=== PATIENT | male | born 1995 | race Hispanic/Latino ===

== ENCOUNTER 2020-08-27 22:05 | Emergency (ER) | payer SELFPAY ==
[2020-08-27 22:22] VITALS: BP 126/78; PULSE 84; RESP 20; TEMP 36.6; O2SAT 100
--- NOTE | 2020-08-27 22:27 | ED.ANIMALBIT ---
HPI - Animal Bite General Chief Complaint: Animal Bite Stated Complaint: dog bite on ear Time Seen by Provider: 08/27/20 22:30 Source: patient and family Mode of arrival: ambulatory Limitations: no limitations History of Present Illness HPI narrative: Patient was evidently bitten by his pit bull on his right ear. Ear has a superficial laceration that is about 4cm long and only a partial thickness wound. Bleeding was minimal although it was widely gaped. MD complaint: animal bite Onset (ago): hour(s) (1) Animal: dog Description of animal: household pet Mechanism: bite Location: other (ear) Pain description: burning Context: unprovoked Associated symptoms: none Treatments prior to arrival: irrigation and other (scrub with wound care spray) Related Data Patient tetanus UTD: No Home Medications Medication Instructions Recorded Confirmed No Home Medications 08/27/20 08/27/20 Allergies Allergy/AdvReac Type Severity Reaction Status Date / Time No Known Allergies Allergy Verified 08/27/20 22:21 Review of Systems Constitutional: Constitutional: Reports no additional constitutional complaints Eyes: Eyes: Reports no additional eye complaints ENT: Reports system reviewed and no additional complaints, except as documented Cardiovascular: Cardiovascular: Reports no additional cardiovascular complaints Respiratory: Respiratory: Reports no additional respiratory complaints Gastrointestinal: Gastrointestinal: Reports no additional gastrointestinal complaints Genitourinary: Genitourinary: Reports no additional male genitourinary complaints Musculoskeletal: Musculoskeletal: Reports no additional musculoskeletal complaints Integumentary/Breasts: Skin/Breast: Reports system reviewed and no additional complaints, except as docu Neurologic: Reports system reviewed and no additional complaints, except as documented Psychiatric: Psychiatric: Reports no additional psychiatric complaints Endocrine: Endocrine: Reports no additional endocrine complaints Hematologic/Lymphatic: Hematologic/Lymphatic: Reports no additional hematologic/lymphatic complaints Allergic/Immunologic: Allergic/Immunologic: Reports no additional allergic/immunologic complaints [facility] Past Medical History Medical History No significant medical problems Surgical History Surgical History No significant past surgical history Family History Family History (Updated 08/28/20 @ 04:00 by Roman Campos MD) Mother Breast cancer in female Social History Social History (Updated 08/28/20 @ 04:00 by Roman Campos MD) Smoking status: Current some day smoker Alcohol intake: current Living arrangements: with family Sexual Orientation (if Verbalized by the Patient): Straight or Heterosexual Exam Const: General: no acute distress Orientation/consciousness: patient oriented x3 HENMT: Head: normal to inspection Ears: TM's normal bilaterally General nose exam: Normal external nose present Face and sinus: normal facial exam Other: laceration right external ear, near canal, superficial thickness 4 cm long Eyes: Conjunctivae: conjunctivae normal EOM: EOMs intact bilaterally Neck: Neck: normal visual inspection and no lymphadenopathy Chest: Chest palpation & inspection: normal inspection of the chest Resp: Effort & Inspection: normal respiratory effort Auscultation: clear to auscultation bilaterally Cardio: Rate: regular rate Rhythm: regular rhythm GI: GI Palp: Yes Soft to palpation : Testes: Testes normal Back/Spine/Pelvis: Back: no CVA tenderness Skin: General skin exam: normal color Neuro: General: patient oriented x3 and moves all extremities Extrem: General: normal to inspection Psych: Appearance: grossly normal Mental Status: mental status grossly normal Thought content: Yes Normal thought content present Course Co
[2020-08-27] MEDS: TETANUS,DIPHTHERIA,AC PERTUSSIS ADULT 0.5 ML (ADACEL) IM (22:39)
[2020-08-27 22:41] VITALS: BP 122/78; PULSE 74; RESP 18; O2SAT 98
== END 2020-08-27 22:45 | disposition home or self-care (01) ==
PROVIDERS: Emergency Provider Emergency Medicine
DX: S01.351A Open bite of right ear, initial encounter (principal); W54.0XXA Bitten by dog, initial encounter
CPT/HCPCS: 12011; 90471; 90715; 99282